=== PATIENT | male | born 1975 | race Asian ===

== ENCOUNTER 2016-11-09 11:31 | Emergency (ER) | payer OTHER ==
[~2016-11-09] VITALS: Ht 167.6 cm; Wt 93.2 kg
[2016-11-09 11:33] VITALS: BP 143/92; PULSE 78; RESP 15; O2SAT 95
[2016-11-09] MEDS ORDERED: CARB200T PO (11:36)
[2016-11-09 12:50] LABS: BASOPHILS % (AUTO) 1.2 % (0-3); EOSINOPHILS % (AUTO) 5.1 % (0-5); MONOCYTES % (AUTO) 7.6 % (4-12); Mean Corpuscular Hemoglobin 28.9 pg (27.0-35.0); Mean Corpuscular Volume 86.6 fL (81-100); Platelet Count 259 bil/L (150-400)
[2016-11-09 13:05] LABS: INR 0.94 ratio
--- NOTE | 2016-11-09 13:24 | DRSVH ---
PROCEDURE: X-RAY CHEST, TWO VIEWS ([id number]) INDICATIONS: hemoptysis TECHNIQUE: 2 views of the chest were acquired. COMPARISON: None. FINDINGS: Surgical changes and devices: None. Lungs and pleura: No pleural effusions or pneumothorax. Lungs are clear. Mediastinum: Mediastinal contours are normal. Heart size is normal. Bones and chest wall: No suspicious bony abnormalities. Soft tissues appear unremarkable. IMPRESSION: No acute cardiopulmonary findings. Dictated by: Mary Lara M.D. on 11/09/2016 at 13:22 Approved by: Mary Lara M.D. on 11/09/2016 at 13:23
--- NOTE | 2016-11-09 14:17 | ED.REPORT ---
HPI-General Illness Date of Service Nov 09, 2016 ED Provider: Marcial Ernandez DO A 41 year old male with a history of epilepsy since age 8 presents to the ED complaining of hemoptysis onset about an hour ago. He went to the restroom at onset and saw that he was coughing up blood, reporting that he has never experienced symptoms like this before. He doesn't think that he is experiencing any epistaxis and denies any fever, sore throat, rash, bruising, or swelling in ankles. He had a seizure 2 days ago. He takes Tegretol to teat seizures. The patient has had no known exposure to TB and has never been tested for the disease. He drinks 2-3 bud light alcoholic beverages per day, but does not smoke. He denies any pertinent surgical history. Nursing Notes Stated Complaint: COUGHING UP BLOOD Chief Complaint: Respiratory Complaints Nursing Notes Reviewed: Yes Allergies: Coded Allergies: No Known Allergies (Unverified , 11/09/16) Scheduled Carbamazepine (Tegretol) 200 Mg Tablet 300 MG PO BID General Time Seen by MD: 12:11 Chief Complaint Other (hemoptysis) Hx Obtained From: Patient Arrived By: Walk-in Sudden in Onset?: Yes Onset Occurred: 1 - 4 hours ago Symptom Duration: Intermittent Recent Healthcare: No recent doctor visit Similar Sx Previous: No Past Medical History Past Medical History Epilepsy since age 8. Past Surgical History none reported. Smoking History Never Smoker Social History Alcohol Use: 1-3 per day Ambulatory Status Independent Review of Systems hemoptysis. Denies epistaxis. Full Review of Systems Constitutional: Denies: Fever Ears / Nose / Throat: Denies: Sore throat Skin: Denies Bruising, Denies Rash, Denies Swelling (Denies swelling in ankles. ) Complete sys rev & neg: except as marked. Physical Exam Vital Signs Vital Signs Date Time Temp Pulse Resp B/P Pulse Ox O2 Delivery O2 Flow Rate FiO2 11/09/16 14:24 60 15 139/92 100 Room Air 11/09/16 11:33 36.4 78 15 143/92 95 Room Air Initial VS: Reviewed General/Constitutional: Awake, Alert Head / Eyes: Atraumatic, Normocephalic, PERRL, EOMI ENT: Atraumatic, Airway patent, Mucous membranes moist Neck: Atraumatic, Full range of motion Respiratory / Chest: Atraumatic, Breath sounds NL, Breath sounds = bilat, No rales, No rhonchi, No wheezing Cardiovascular: Heart rate NL, Regular rhythm, Heart sounds NL, No gallop, No murmurs, No rubs Abdomen: Atraumatic, Soft, Non-tender, No guarding, No rebound Back: Atraumatic, Full range of motion Upper Extremities Upper Extremity / MS: Atraumatic, Full range of motion Lower Extremity / Pelvis / MS: Atraumatic, Full range of motion Ankle / Foot: Inspection NL, No swelling, No erythema, Non-tender, No deformity , Neurologic intact, Vascular intact, No edema Skin: Atraumatic, Color NL, No rash, Warm, Dry Neurologic: Oriented X3, Speech NL Interpretation & Diagnostics Lab Results Interpretation Result Diagram: 11/09/16 1242 11/09/16 1242 Test 11/09/16 12:42 White Blood Count 6.4th/mm3 (3.8-10.1) Red Blood Count 4.63mil/mm3 (4.40-5.80) Hemoglobin 13.4g/dL (13.8-17.2) Hematocrit 40.1% (41.0-50.0) Mean Corpuscular Volume 86.6fL (81-100) Mean Corpuscular Hemoglobin 28.9pg (27.0-35.0) Mean Corpuscular Hemoglobin Concent 33.4% (32.0-37.0) Red Cell Distribution Width 13.3% (12.3-15.4) Platelet Count 259bil/L (150-400) Neutrophils (%) (Auto) 58.0% (40-74) Lymphocytes (%) (Auto) 27.9% (14-46) Monocytes (%) (Auto) 7.6% (4-12) Eosinophils (%) (Auto) 5.1% (0-5) Basophils (%) (Auto) 1.2% (0-3) Prothrombin Time 10.0sec (8.1-12.5) Prothromb Time International Ratio 0.94ratio Sodium Level 141mEq/L (134-144) Potassium Level 4.7mEq/L (3.5-5.2) Chloride Level 103mEq/L (97-108) Carbon Dioxide Level 25mmol/L (18-29) Blood Urea Nitrogen 16mg/dL (6-20) Creatinine 0.81mg/dL (0.76-1.27) Estimat Glomerular Filtration Rate 113mL/min (>59) Glucose Level 104mg/dL (60-99) Calcium Level 8.9mg/dL (8.5-10.1) Total Bilirubin 0.3mg/dL (0.0-1.2) Aspartate Amino Transf (AST/SGOT) 25U/L (0-50) Alanine Aminotransferase (ALT/SGPT) 39U/L (0-44) Alkaline Phosphatase 60U/L (25-150) Total Protein 7.5g/dL (6.4-8.4) Albumin 4.6g/dL (3.4-5.0) Hold Sanchez Top Tube Received (Received) Carbamazepine (Tegretol) Level 6.9ug/mL (4.0-12.0) X-Ray Chest Interpretation Chest Xray Interpretation: IMPRESSION: No acute cardiopulmonary findings. Dictated by: Mary Lara M.D. on 11/09/2016 at 13:22 Approved by: Mary Lara M.D. on 11/09/2016 at 13:23 Interpretation / Wet Read by: Interpret - Radiologist Re-Eval/Medical Decision Med Decision/Clinical Course This patient has not had any recurrent hemoptysis since in the ER vitals remained stable basic workup is unremarkable, strict return and follow-up precautions are given. Source of Hx: Old records Time of Eval: 14:00 Re-Evaluation/Progress Note: Rechecked patient, explained normal test results and plan for discharge. Patient understands and agrees with the plan. All questions addressed. Counseled Regarding: Diagnosis, Lab results, Need for follow-up, When/why to return to ED Discharge & Departure Primary Impression: Hemoptysis, unspecified Disposition: Home Discharge Condition All VS Reviewed: Yes Condition: Improved Patient Instructions: Acute Hemoptysis (ED) Additional Instructions: No obvious life-threatening cause for your cough is found, follow-up with your primary care doctor. Return to ER if you are coughing up massive amounts of blood, become lethargic become severely short of breath, or have other concerns. Referrals: NOPCP (PCP) Scribe Attestation Portions of this note were transcribed by Gustavo Harris. I, Dr. Ernandez, personally performed the history, physical exam, and medical decision-making; I reviewed and confirmed the accuracy of the information in the transcribed note. Signed by: Flip Tucker, 11/09/2016, 1434. copies to: Marcial Swartz DO Nov 09, 2016 14:17 Gustavo Harris Nov 09, 2016 14:34
[2016-11-09 14:24] VITALS: BP 139/92; PULSE 60; RESP 15; O2SAT 100
== END 2016-11-09 14:20 | disposition home or self-care (01) ==
LOC: SED 11:31
DX: R04.2 Hemoptysis (principal); G40.909 Epilepsy, unspecified, not intractable, without status epilepticus